=== PATIENT | male | born 1930 | race Caucasian/White ===

== ENCOUNTER 2019-12-15 09:59 | Emergency (ER) | payer MEDICARE, OTHER ==
[2019-12-15] MEDS ORDERED: ACETAMINOPHEN 325 MG TAB ONE (11:20)
[2019-12-15 12:17] LABS: CREATININE 1.1 mg/dL (0.5-1.5); POTASSIUM 4.6 mmol/L (3.5-5.1)
[2019-12-15 12:21] LABS: ALBUMIN 3.9 g/dL (3.5-5.0); BILIRUBIN,TOTAL 0.8 mg/dL (0.2-1.0); TOTAL PROTEIN, SERUM 8.1 g/dL (6.0-8.3)
[2019-12-15 13:03] LABS: BASOPHILS % (AUTO) 0.5 % (0.0-5.0); EOSINOPHILS % (AUTO) 0.9 % (0.0-8.0); HEMATOCRIT 49.1 % (42-54); LYMPHOCYTES % (AUTO) 12.2 % (21.0-51.0); MEAN CORPUSCULAR HEMOGLOBIN 30.1 pg (27.0-33.0); MEAN CORPUSCULAR HGB CONC 32.6 g/dL (32.0-36.0); MEAN CORPUSCULAR VOLUME 92.3 fL (79-99); MONOCYTES % (AUTO) 13.9 % (3.0-13.0); NEUTROPHILS % (AUTO) 72.2 % (40.0-77.0); PLATELET COUNT (AUTO) 241 K/uL (130-400); RED BLOOD CELL COUNT(AUTO) 5.32 MIL/uL (4.50-6.20); RED CELL DISTRIBUTION WIDTH 14.3 % (11.0-15.5); WHITE BLOOD COUNT (AUTO) 10.3 K/uL (4.8-10.8)
[2019-12-15] MEDS ORDERED: LIDOCAINE 5% TOPICAL PATCH TP ONE (13:41)
[2019-12-15] MEDS ORDERED: ALBUTEROL INHALER 90MCG/INH IH ONE (14:03)
== END 2019-12-15 14:50 | disposition home or self-care (01) ==
LOC: EDH 09:59
DX: S20.211A Contusion of right front wall of thorax, initial encounter (principal); S00.03XA Contusion of scalp, initial encounter; M25.531 Pain in right wrist; R03.0 Elevated blood-pressure reading, without diagnosis of hypertension; J44.9 Chronic obstructive pulmonary disease, unspecified; Z91.041 Radiographic dye allergy status; Z88.0 Allergy status to penicillin; Z90.49 Acquired absence of other specified parts of digestive tract; Z72.0 Tobacco use; W01.0XXA Fall on same level from slipping, tripping and stumbling without subsequent striking against object, initial encounter; Y93.89 Activity, other specified; Y92.098 Other place in other non-institutional residence as the place of occurrence of the external cause; Y99.8 Other external cause status
CPT/HCPCS: 29125; 36415; 70450; 71101; 73110; 80053; 82550; 85025; 93005